=== PATIENT | female | born 1950 | race Caucasian/White ===

== ENCOUNTER → 2016-12-05 | Outpatient (CLI) | payer MEDICARE, OTHER | LOC: MAMO 15:00 | DX: Z12.31 Encounter for screening mammogram for malignant neoplasm of breast (principal) | CPT/HCPCS: G0202 ==

== ENCOUNTER 2016-12-12 20:41 | Emergency (ER) | payer MEDICARE | END 2016-12-12 22:40 | disposition left against medical advice (07) | LOC: ER1 20:41 | DX: Z53.21 Procedure and treatment not carried out due to patient leaving prior to being seen by health care provider (principal) ==

== ENCOUNTER 2016-12-13 15:39 | Emergency (ER) | payer SELFPAY | END 2016-12-13 17:55 | disposition home or self-care (01) | LOC: ER1 15:39 | DX: S93.491A Sprain of other ligament of right ankle, initial encounter (principal); E11.9 Type 2 diabetes mellitus without complications; E78.00 Pure hypercholesterolemia, unspecified; I10 Essential (primary) hypertension; Z88.8 Allergy status to other drugs, medicaments and biological substances; X50.1XXA Overexertion from prolonged static or awkward postures, initial encounter; W19.XXXA Unspecified fall, initial encounter | CPT/HCPCS: 73590; 73610; 73630; 99283 ==

== ENCOUNTER 2021-04-20 20:55 | Inpatient (IN) | payer MEDICARE, OTHER ==
[~2021-04-20] VITALS: Ht 160 cm; Wt 69.9 kg
[~2021-04-20 20:55] MED LIST: BACTRIM DS TAB1 EACH PO; KEFLEX CAP 500500 MG PO
[2021-04-20 21:33] LABS: HEMOGLOBIN 13.7 gm/dl (12.3-15.3); RED BLOOD COUNT 5.13 M/UL (4.00-5.10); WHITE BLOOD COUNT 7.6 K/UL (4.5-11.0)
[2021-04-20 21:55] LABS: BUN/CREATININE RATIO 15 (0-10)
[2021-04-21 04:50] LABS: HEMOGLOBIN 13.7 gm/dl (12.3-15.3); RED BLOOD COUNT 5.15 M/UL (4.00-5.10); WHITE BLOOD COUNT 7.9 K/UL (4.5-11.0)
[2021-04-21 05:39] LABS: BUN/CREATININE RATIO 14 (0-10)
[2021-04-21] MEDS ORDERED: NEURONTIN300 MG PO (11:18)
[2021-04-21] MEDS ORDERED: OXYCODONE HCL15 MG PO (11:23)
[2021-04-21] MEDS ORDERED: XANAX1 MG PO (11:23)
[2021-04-21] MEDS ORDERED: ARICEPT10 MG PO ×2 (11:24)
[2021-04-21] MEDS ORDERED: SINGULAIR10 MG PO (11:24)
[2021-04-21] MEDS ORDERED: PRAVASTATIN SOD40 MG PO (11:27)
[2021-04-21] MEDS ORDERED: ZYRTEC10 MG PO (11:27)
[2021-04-21] MEDS ORDERED: TOPROL XL100 MG PO (11:28)
[2021-04-21] MEDS ORDERED: ISOSORBIDE MON120 MG PO (11:28)
[2021-04-21] MEDS ORDERED: NORVASC5 MG PO (11:28)
[2021-04-22 04:05] LABS: HEMOGLOBIN 11.2 gm/dl (12.3-15.3); RED BLOOD COUNT 4.25 M/UL (4.00-5.10); WHITE BLOOD COUNT 12.6 K/UL (4.5-11.0)
[2021-04-22 04:17] LABS: BUN/CREATININE RATIO 29 (0-10)
[2021-04-23 05:15] LABS: BUN/CREATININE RATIO 40 (0-10)
[2021-04-24 04:37] LABS: HEMOGLOBIN 10.5 gm/dl (12.3-15.3); RED BLOOD COUNT 4.06 M/UL (4.00-5.10)
[2021-04-24 04:49] LABS: WHITE BLOOD COUNT 5.1 K/UL (4.5-11.0)
[2021-04-24 04:57] LABS: BUN/CREATININE RATIO 42 (0-10)
[2021-04-25 10:29] LABS: HEMOGLOBIN 13.6 gm/dl (12.3-15.3); RED BLOOD COUNT 5.18 M/UL (4.00-5.10); WHITE BLOOD COUNT 4.6 K/UL (4.5-11.0)
[2021-04-25 10:47] LABS: BUN/CREATININE RATIO 48 (0-10)
[2021-04-26 09:53] LABS: WHITE BLOOD COUNT 5.7 K/UL (4.5-11.0)
[2021-04-26 09:59] LABS: HEMOGLOBIN 11.4 gm/dl (12.3-15.3); RED BLOOD COUNT 4.33 M/UL (4.00-5.10)
[2021-04-26 10:09] LABS: BUN/CREATININE RATIO 61 (0-10)
[2021-04-27 08:03] LABS: RED BLOOD COUNT 3.27 M/UL (4.00-5.10); WHITE BLOOD COUNT 3.9 K/UL (4.5-11.0)
[2021-04-27 08:04] LABS: HEMOGLOBIN 8.7 gm/dl (12.3-15.3)
[2021-04-27 08:15] LABS: BUN/CREATININE RATIO 97 (0-10)
[2021-04-28 10:21] LABS: HEMOGLOBIN 9.7 gm/dl (12.3-15.3); RED BLOOD COUNT 3.68 M/UL (4.00-5.10); WHITE BLOOD COUNT 8.4 K/UL (4.5-11.0)
[2021-04-28 10:46] LABS: BUN/CREATININE RATIO 68 (0-10)
--- NOTE | 2021-04-29 01:38 | NUR ---
PATIENTS FAMILY CALLED STATING THE SON WAS THE POA AND WANTED TO SIGN HER OUT AMA. THE FAMILY WAS UPSET BUT HAD ALREADY SPOKE TO THE DOCTOR REGARDING WHY SHE WAS NOT ALLOWED TO HAVE HER XANAX AT THIS TIME. THE FAMILY WAS UPSET THAT WE WERE NOT GIVING THAT TO HER. THE FAMILY WAS ADVISED TO NOT TAKE THE PATIENT HOME AMA DUE TO HER O2 SATS AND THE MEDICATION SHE WAS CURRENLTY ON TO KEEP HER BP WITHIN NORMAL RANGE. THE FAMILY WAS STILL NOT SATISFIED AND WANTED TO TAKE HER HOME DESPITE OF THAT. I TRANSFERRED THE CALL TO [facility], WHO TOOK OVER FROM THERE. [facility] IS TO BE CALLED IF FAMILY COMES TO HOSPITAL TO SEE THE PATIENT. MD AWARE OF SITUATION.
--- NOTE | 2021-04-29 01:56 | NUR ---
PATIENT REFUSED MOST OF NIGHT TIME MEDICATIONS. THE IMPORTANCE OF THE MEDICATION WAS EXPLAINED. SHE STATED SHE WANTED TO CALL HER SON AND LEAVE AMA. I EXPLAINED TO THE PATIENT WHY SHE SHOULD STAY AT THE HOSPITAL.
[2021-04-30 04:14] LABS: RED BLOOD COUNT 2.34 M/UL (4.00-5.10)
[2021-04-30 04:16] LABS: HEMOGLOBIN 6.3 gm/dl (12.3-15.3)
[2021-04-30 04:31] LABS: BUN/CREATININE RATIO 56 (0-10)
[2021-04-30 23:06] LABS: RED BLOOD COUNT 1.95 M/UL (4.00-5.10); WHITE BLOOD COUNT 20.5 K/UL (4.5-11.0)
[2021-04-30 23:07] LABS: HEMOGLOBIN 5.4 gm/dl (12.3-15.3)
[2021-04-30 23:59] LABS: BUN/CREATININE RATIO 73 (0-10)
--- NOTE | 2021-05-01 02:29 | NUR ---
CALLED FAMILY REGARDING CENTRAL LINE PLACEMENT AND PATIENT CONDITION CHANGE. CALLED SON AND EMERGENCY CONTACT, NO ANSWER. LEFT SON VOICEMAIL.
--- NOTE | 2021-05-01 02:31 | NUR ---
PHONE CALLS TO FAMILY WAS MADE AT 00:05. AND A SECOND ATTEMPT TO CALL SON AND EMERGECNY CONTACT WAS MADE AT 00:25
[2021-05-01] MEDS ORDERED: PROTONIX (08:52)
[2021-05-01] MEDS ORDERED: DECADRON IM/I4 MG/ML IVP ×2 (08:52→17:07)
[2021-05-01 09:37] LABS: WHITE BLOOD COUNT 24.7 K/UL (4.5-11.0)
[2021-05-01 09:39] LABS: HEMOGLOBIN 12.6 gm/dl (12.3-15.3); RED BLOOD COUNT 4.17 M/UL (4.00-5.10)
--- NOTE | 2021-05-01 09:53 | NUR ---
Late entry (04/30/21) @ 1500: 20g x 10cm midline inserted in the left brachial vein. Aspirates and flushes well.
[2021-05-01 10:07] LABS: BUN/CREATININE RATIO 53 (0-10)
[2021-05-02 03:55] LABS: HEMOGLOBIN 10.9 gm/dl (12.3-15.3)
[2021-05-02 03:57] LABS: RED BLOOD COUNT 3.65 M/UL (4.00-5.10); WHITE BLOOD COUNT 15.1 K/UL (4.5-11.0)
[2021-05-02 04:27] LABS: BUN/CREATININE RATIO 29 (0-10)
[2021-05-02] MEDS ORDERED: NS (08:20)
[2021-05-02] MEDS ORDERED: MEROPENEM (08:28)
[2021-05-03 02:58] LABS: HEMOGLOBIN 10.7 gm/dl (12.3-15.3); RED BLOOD COUNT 3.58 M/UL (4.00-5.10)
[2021-05-03 03:20] LABS: BUN/CREATININE RATIO 18 (0-10)
--- NOTE | 2021-05-03 20:18 | NUR ---
REPORT CALLED TO [facility] ROOM 57, 5TH FLOOR. REPORT TO ELGIN GRAHAM. NOTIFIED PTS PER HER REQUEST OF TRANSFER. EMS CALLED AND AWAITING TRANSFER.
== END 2021-05-03 20:47 | disposition short-term general hospital (02) | DRG 871 ==
LOC: ER1 20:55 → PROG CARE 22:43 → CDU 22:43 → PROG CARE 04-21 18:51
PROVIDERS: Internal Medicine; Physician Assistant; ADMIT Internal Medicine
PROC: XW033E5 Introduction of Remdesivir Anti-infective into Peripheral Vein, Percutaneous Approach, New Technology Group 5 (ICD-10-PCS; 2021-04-20)
PROC: 3E0333Z Introduction of Anti-inflammatory into Peripheral Vein, Percutaneous Approach (ICD-10-PCS; 2021-04-20)
PROC: 5A09457 Assistance with Respiratory Ventilation, 24-96 Consecutive Hours, Continuous Positive Airway Pressure (ICD-10-PCS; 2021-04-20)
PROC: 8E0ZXY6 Isolation (ICD-10-PCS; principal; 2021-04-21)
PROC: 5A0955A Assistance with Respiratory Ventilation, Greater than 96 Consecutive Hours, High Flow/Velocity Cannula (ICD-10-PCS; 2021-04-22)
PROC: 3E033XZ Introduction of Vasopressor into Peripheral Vein, Percutaneous Approach (ICD-10-PCS; 2021-04-27)
PROC: 30233N1 Transfusion of Nonautologous Red Blood Cells into Peripheral Vein, Percutaneous Approach (ICD-10-PCS; 2021-04-29)
PROC: B24BZZ4 Ultrasonography of Heart with Aorta, Transesophageal (ICD-10-PCS; 2021-04-29)
PROC: 02HV33Z Insertion of Infusion Device into Superior Vena Cava, Percutaneous Approach (ICD-10-PCS; 2021-04-30)
PROC: B548ZZA Ultrasonography of Superior Vena Cava, Guidance (ICD-10-PCS; 2021-04-30)
DX: A41.51 Sepsis due to Escherichia coli [E. coli] (principal); U07.1 COVID-19; J12.82 Pneumonia due to coronavirus disease 2019; J80 Acute respiratory distress syndrome; G93.41 Metabolic encephalopathy; J15.9 Unspecified bacterial pneumonia; R65.21 Severe sepsis with septic shock; K92.2 Gastrointestinal hemorrhage, unspecified; Z16.12 Extended spectrum beta lactamase (ESBL) resistance; J44.0 Chronic obstructive pulmonary disease with (acute) lower respiratory infection; A41.89 Other specified sepsis; B96.20 Unspecified Escherichia coli [E. coli] as the cause of diseases classified elsewhere; N30.90 Cystitis, unspecified without hematuria; E78.5 Hyperlipidemia, unspecified; E87.6 Hypokalemia; I25.10 Atherosclerotic heart disease of native coronary artery without angina pectoris; D50.0 Iron deficiency anemia secondary to blood loss (chronic); I48.0 Paroxysmal atrial fibrillation; F41.9 Anxiety disorder, unspecified; Z95.1 Presence of aortocoronary bypass graft; Z88.5 Allergy status to narcotic agent; Z88.8 Allergy status to other drugs, medicaments and biological substances; Z95.5 Presence of coronary angioplasty implant and graft; Z82.49 Family history of ischemic heart disease and other diseases of the circulatory system
CPT/HCPCS: ECHO; 36415; 36600; 51702; 70450; 71045; 80048; 80053; 80307; 81001; 82272; 82550; 82553; 82803; 82962; 83036; 83540; 83550; 83605; 83735; 83874; 83880; 84100; 84132; 84484; 85018; 85025; 85027; 85610; 85730; 86140; 86850; 86900; 86901; 86920; 87040; 87077; 87086; 87186; 93005; 93306; 94640; 94660; 94664; 94760; 96365; 96375; 97162; 97530; 99285; C1751; C9113; J0456; J0696; J1100; J1650; J2185; J3475; J7030; J7070; P9016; U0002

== ENCOUNTER 2021-09-05 15:33 | Inpatient (IN) | payer MEDICARE, OTHER ==
[~2021-09-05] VITALS: Ht 160 cm; Wt 60.9 kg
[~2021-09-05 15:33] MED LIST changes: +ALL DAY ALLERGY10 MG PO; +ARICEPT10 MG PO; +ASPIRIN EC81 MG PO; +AUGMENTIN 875-1 EACH PO; +DECADRON IM/I4 MG/ML IVP; +IPRAT-ALBUT 0.5-3 ML NEB; +ISOSORBIDE MONO30 MG PO; +LASIX40 MG PO; +LEVOFLOXACIN500 MG PO; +LISINOPRIL5 MG PO; +MEROPENEM; +METOPROLOL SUC100 MG PO; +MONTELUKAST SOD10 MG PO; +MORPHINE SULFAT60 M1 PO; +NEURONTIN300 MG PO; +NITROSTAT 0.40.4 MG SL; +NORVASC5 MG PO; +NS; +OXYCODON-ACETA1 EAC1 PO; +OXYCODONE HCL15 MG PO; +PRAVASTATIN SOD40 MG PO; +PROTONIX; +SINGULAIR10 MG PO; +TOPROL XL100 MG PO; +XANAX1 MG PO; +ZYRTEC10 MG PO
[2021-09-05 16:43] LABS: HEMOGLOBIN 13.8 gm/dl (12.3-15.3); RED BLOOD COUNT 5.08 M/UL (4.00-5.10); WHITE BLOOD COUNT 18.6 K/UL (4.5-11.0)
[2021-09-05 17:18] LABS: BUN/CREATININE RATIO 19 (0-10)
[2021-09-06 01:01] LABS: ADENOVIRUS F 40/41 Not Detected (Negative); ASTROVIRUS Not Detected (Negative); CAMPYLOBACTER Not Detected (Negative); CLOSTRIDIUM DIFFICILE TOX A/B Not Detected (Negative); CRYPTOSPORIDIUM Not Detected (Negative); E.COLI 0157 Not Detected (Negative); ENTAMOEBA HISTOLYTICA Not Detected (Negative); ENTEROAGGREGATIVE E.COLI (EAEC Not Detected (Negative); ENTEROPATHOGENIC E.COLI (EPEC) Not Detected (Negative); ENTEROTOXIGENIC E.COLI (ETEC) Not Detected (Negative); GIARDIA LAMBLIA Not Detected (Negative); NOROVIRUS GI/GII Not Detected (Negative); PLESIOMONAS SHIGELLOIDES Not Detected (Negative); ROTOVIRUS A Not Detected (Negative); SALMONELLA Not Detected (Negative); SAPOVIRUS Not Detected (Negative); SHIG/ENTEROINVAS.ECOLI (EIEC) Not Detected (Negative); SHIGA-LIK TOX.PRO.E.COLI (STEC Not Detected (Negative); VIBRIO Not Detected (Negative); VIBRIO CHOLERAE Not Detected (Negative); YERSINIA ENTEROCOLITICA Not Detected (Negative)
[2021-09-06 04:17] LABS: HEMOGLOBIN 12.4 gm/dl (12.3-15.3); RED BLOOD COUNT 4.65 M/UL (4.00-5.10); WHITE BLOOD COUNT 16.1 K/UL (4.5-11.0)
[2021-09-06 04:40] LABS: BUN/CREATININE RATIO 12 (0-10)
[2021-09-06] MEDS ORDERED: FUROSEMIDE40 MG PO (10:33)
[2021-09-06] MEDS ORDERED: OXYCODONE HCL15 MG PO (10:36)
[2021-09-06] MEDS ORDERED: ONDANSETRON HCL4 MG PO (10:36)
[2021-09-06] MEDS ORDERED: ELIQUIS5 MG PO (10:37)
[2021-09-06] MEDS ORDERED: ASCORBIC ACID500 MG PO (10:37)
[2021-09-06] MEDS ORDERED: CARTIA XT120 MG PO (10:38)
[2021-09-06] MEDS ORDERED: FERROUS SULFAT324 MG PO (10:39)
[2021-09-06] MEDS ORDERED: LORATADINE10 MG PO (10:40)
[2021-09-06] MEDS ORDERED: FLUDROCORTISON0.1 MG PO (10:40)
[2021-09-06] MEDS ORDERED: PROTONIX 40 MG40 M1 PO (10:41)
[2021-09-06] MEDS ORDERED: METOPROLOL SUCC25 MG PO (10:41)
[2021-09-06] MEDS ORDERED: POTASSIUM CHLO10 ME1 PO (10:42)
[2021-09-07 05:24] LABS: HEMOGLOBIN 12.4 gm/dl (12.3-15.3); RED BLOOD COUNT 4.68 M/UL (4.00-5.10); WHITE BLOOD COUNT 13.8 K/UL (4.5-11.0)
[2021-09-07 06:27] LABS: BUN/CREATININE RATIO 9 (0-10)
--- NOTE | 2021-09-07 13:43 | NUR ---
REPORT GIVEN TO JANET AND PT TRANSPORTED TO 4111 PER TECH W/C WITH OXYGEN AT 2 L BNC
[2021-09-08 06:56] LABS: WHITE BLOOD COUNT 13.9 K/UL (4.5-11.0)
[2021-09-08 06:58] LABS: HEMOGLOBIN 10.1 gm/dl (12.3-15.3); RED BLOOD COUNT 3.85 M/UL (4.00-5.10)
[2021-09-08 07:20] LABS: BUN/CREATININE RATIO 8 (0-10)
[2021-09-09 05:52] LABS: HEMOGLOBIN 10.5 gm/dl (12.3-15.3); RED BLOOD COUNT 4.05 M/UL (4.00-5.10); WHITE BLOOD COUNT 14.2 K/UL (4.5-11.0)
[2021-09-09 06:49] LABS: BUN/CREATININE RATIO 10 (0-10)
[2021-09-10 02:25] LABS: HEMOGLOBIN 10.3 gm/dl (12.3-15.3); RED BLOOD COUNT 3.91 M/UL (4.00-5.10); WHITE BLOOD COUNT 14.9 K/UL (4.5-11.0)
--- NOTE | 2021-09-10 02:44 | NUR ---
TELE NOTIFIED ME THAT PATIENTS RATE WAS A FIB AND QUICKLY CONVERTED TO A FLUTTER. I NOTIFIED THE PROVIDER AND PLACED THE REQUESTED ORDERS FOR EKG, AND LABS FOR MAG AND K. RESULTS OF EKG WERE TAKEN TO HOUSES OFFICE AND SENT TO THE PROVIDER. ORDERS WERE THEN PALCED FOR MEDICATION THAT WAS THEN GIVEN. RATE IS CURRENTLY CONTROLLED AT 75-90 BMP AND LABS RESULTED WNL. RHYTHM IS SILL SHOWING A FLUTTER ON TELE, WILL CONTINUE TO MONITOR AND NOTIFY PROVIDER OF ANY CHANGES.
[2021-09-10 02:49] LABS: BUN/CREATININE RATIO 12 (0-10)
--- NOTE | 2021-09-10 06:08 | NUR ---
OBTAINED STOOL AND SENT TO LAB. STO WAS STILL ACTIVE AND PATIENT HAD WHAT APPEARED TO BE BLOOD IN STOOL.
[2021-09-11 04:59] LABS: HEMOGLOBIN 9.8 gm/dl (12.3-15.3); RED BLOOD COUNT 3.74 M/UL (4.00-5.10); WHITE BLOOD COUNT 12.3 K/UL (4.5-11.0)
[2021-09-11 05:31] LABS: BUN/CREATININE RATIO 19 (0-10)
[2021-09-12 03:30] LABS: HEMOGLOBIN 9.5 gm/dl (12.3-15.3); RED BLOOD COUNT 3.69 M/UL (4.00-5.10); WHITE BLOOD COUNT 11.6 K/UL (4.5-11.0)
[2021-09-12 03:42] LABS: BUN/CREATININE RATIO 13 (0-10)
[2021-09-12] MEDS ORDERED: LEVOFLOXACIN750 MG PO (10:22)
[2021-09-12] MEDS ORDERED: BENTYL 20MG TAB20 MG PO (10:22)
== END 2021-09-12 12:30 | disposition home or self-care (01) | DRG 690 ==
LOC: ER1 15:33 → MED SURG 4 20:39 → CDU 20:39 → 3 EAST 20:39 → MED SURG 4 09-07 13:50
PROVIDERS: Internal Medicine; Preventive Medicine Occupational Medicine; ADMIT Internal Medicine
DX: N39.0 Urinary tract infection, site not specified (principal); J96.11 Chronic respiratory failure with hypoxia; J44.9 Chronic obstructive pulmonary disease, unspecified; I10 Essential (primary) hypertension; I25.10 Atherosclerotic heart disease of native coronary artery without angina pectoris; M54.9 Dorsalgia, unspecified; A08.4 Viral intestinal infection, unspecified; K52.9 Noninfective gastroenteritis and colitis, unspecified; G89.29 Other chronic pain; E87.6 Hypokalemia; F41.9 Anxiety disorder, unspecified; E83.42 Hypomagnesemia; I48.0 Paroxysmal atrial fibrillation; B96.20 Unspecified Escherichia coli [E. coli] as the cause of diseases classified elsewhere; K57.90 Diverticulosis of intestine, part unspecified, without perforation or abscess without bleeding; K80.20 Calculus of gallbladder without cholecystitis without obstruction; Z99.81 Dependence on supplemental oxygen; Z88.8 Allergy status to other drugs, medicaments and biological substances; Z79.01 Long term (current) use of anticoagulants; Z79.82 Long term (current) use of aspirin; Z79.899 Other long term (current) drug therapy
CPT/HCPCS: 0240U; 36415; 36600; 71045; 80048; 80053; 81001; 82140; 82803; 82962; 83631; 83690; 83735; 84100; 84132; 85025; 85027; 85652; 86140; 87040; 87077; 87086; 87186; 87507; 93005; 96374; 96375; 99285; J0696; J1170; J1956; J2270; J2405; J3475; J3480; Q9967; U0002